=== PATIENT | male | born 1985 | race Caucasian/White ===

== ENCOUNTER 2020-04-28 00:30 | Emergency (ER) | payer OTHER ==
[2020-04-28] MEDS ORDERED: Diphtheria,Pertussis(Acell),Tetanus Vaccine 0.5 ML SDV IM ONE (01:08)
[2020-04-28] MEDS ORDERED: Bacitracin Oint 1 GM U/D Packet TOP ONE (01:08)
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
== END 2020-04-28 01:44 | disposition home or self-care (01) ==
LOC: JP.ED 00:30
DX: S01.112A Laceration without foreign body of left eyelid and periocular area, initial encounter (principal); Z23 Encounter for immunization; Y04.0XXA Assault by unarmed brawl or fight, initial encounter
CPT/HCPCS: 12011; 90471; 90715; 99282